=== PATIENT | male | born 1990 | race Two or more races ===

== ENCOUNTER 2021-05-08 19:34 | Emergency (ER) | payer SELFPAY ==
[~2021-05-08] VITALS: Ht 157.5 cm; Wt 72.0 kg
--- NOTE | 2021-05-08 20:22 | PHYS DOC ---
Past Medical History Past Surgical History: No Surgical History General Adult EDM: Chief Complaint: HEADACHE HPI: HPI: Patient is a 31-year-old male who presents to the emergency department for bilateral tinnitus and a generalized headache x1 week. Patient reports that over the last week he is intermittently had numbness or tingling in his left arm and midsternal chest pain. Patient states that he was seen for the same complaint at [facility] 2 months ago they told him that while in the ER, his blood pressure was elevated. He states that he did not get discharged home with any hypertension medications and he does not have a primary care provider. He denies any current chest pain, nausea, vomiting, coughing, fevers, shortness of breath. He states that he does not take any medications at home including [id number] medications. Review of Systems: Review of Systems: Constitutional: See HPI HENT: See HPI Respiratory: See HPI Cardiovascular: See HPI GI: See HPI Neurologic: See HPI Heart Score: C/O Chest Pain: No HEART Score for Chest Pain: HEART Score for Chest Pain Response (Comments) Value History Slighlty/Non-Suspicious 0 ECG Normal 0 Age < 45 0 Risk Factors No Risk Factors 0 Troponin < Normal Limit 0 Total 0 Risk Factors: Risk Factors: DM, Current or recent (<one month) smoker, HTN, HLP, family history of CAD, obesity. Risk Scores: Score 0 - 3: 2.5% MACE over next 6 weeks - Discharge Home Score 4 - 6: 20.3% MACE over next 6 weeks - Admit for Clinical Observation Score 7 - 10: 72.7% MACE over next 6 weeks - Early Invasive Strategies Allergies: Allergies: Allergies Coded Allergies Type Severity Reaction Last Updated Verified No Known Drug Allergies 05/08/21 No Physical Exam: PE: Constitutional: Well developed, well nourished, no acute distress, non-toxic appearance. [] HENT: Normocephalic, atraumatic, bilateral external ears normal, fluid noted behind bilateral TMs without erythema, oropharynx moist, no oral exudates, nose normal. [] Eyes: PERRL, EOMI, conjunctiva normal, no discharge. [] Neck: Normal range of motion, no tenderness, supple, no stridor. [] Cardiovascular:Heart rate regular rhythm, no murmur [] Lungs & Thorax: Bilateral breath sounds clear to auscultation [] Abdomen: Bowel sounds normal, soft, no tenderness, no masses, no pulsatile masses. [] Skin: Warm, dry, no erythema, no rash. [] Back: Normal range of motion Extremities: No tenderness, no cyanosis, no clubbing, ROM intact, no edema. [] Neurologic: Alert and oriented X 3, normal motor function, normal sensory function, no focal deficits noted. [] Psychologic: Affect normal, judgement normal, mood normal. [] Current Patient Data: Labs: Laboratory Tests Test 05/08/21 20:25 White Blood Count 7.3 x10^3/uL Red Blood Count 5.36 x10^6/uL Hemoglobin 16.0 g/dL Hematocrit 47.1 % Mean Corpuscular Volume 88 fL Mean Corpuscular Hemoglobin 30 pg Mean Corpuscular Hemoglobin Concent 34 g/dL Red Cell Distribution Width 13.5 % Platelet Count 262 x10^3/uL Neutrophils (%) (Auto) 53 % Lymphocytes (%) (Auto) 32 % Monocytes (%) (Auto) 9 % Eosinophils (%) (Auto) 5 % Basophils (%) (Auto) 1 % Neutrophils # (Auto) 3.9 x10^3/uL Lymphocytes # (Auto) 2.3 x10^3/uL Monocytes # (Auto) 0.6 x10^3/uL Eosinophils # (Auto) 0.4 x10^3/uL Basophils # (Auto) 0.1 x10^3/uL Sodium Level 140 mmol/L Potassium Level 3.7 mmol/L Chloride Level 101 mmol/L Carbon Dioxide Level 30 mmol/L Anion Gap 9 Blood Urea Nitrogen 11 mg/dL Creatinine 0.9 mg/dL Estimated GFR (Cockcroft-Gault) 97.8 BUN/Creatinine Ratio 12 Glucose Level 100 mg/dL Calcium Level 8.6 mg/dL Total Bilirubin 0.2 mg/dL Aspartate Amino Transf (AST/SGOT) 16 U/L Alanine Aminotransferase (ALT/SGPT) 34 U/L Alkaline Phosphatase 75 U/L Troponin I High Sensitivity 16 ng/L Total Protein 7.2 g/dL Albumin 3.9 g/dL Albumin/Globulin Ratio 1.2 Current Medications Medications (Trade) Dose Ordered Sig/Juan Route PRN Reason Start Time Stop Time Status Last Admin Dose Admin Ketorolac Tromethamine (Toradol 30mg Vial) 30 mg 1X ONCE IVP 05/08/21 20:30 05/08/21 20:31 DC 05/08/21 20:48 Diphenhydramine HCl (Benadryl) 25 mg 1X ONCE IVP 05/08/21 20:30 05/08/21 20:31 DC 05/08/21 20:48 Prochlorperazine Edisylate (Compazine) 10 mg 1X ONCE IV 05/08/21 20:30 05/08/21 20:31 DC 05/08/21 20:47 Vital Signs: Vital Signs Date Time Temp Pulse Resp B/P (MAP) Pulse Ox O2 Delivery O2 Flow Rate FiO2 05/08/21 19:45 98.6 70 18 162/103 (122) 100 98.6 EKG: EKG: [] EKG performed by ER staff at 2006 shows sinus rhythm with a heart rate of 63, QTC of 363, no STEMI read by Dr. Gunderson at 2009. Radiology/Procedures: Radiology/Procedures: []PROCEDURE: CT HEAD WO CONTRAST EXAMINATION: CT HEAD/BRAIN WO CLINICAL HISTORY: Headache, numbness TECHNIQUE: Serial axial images without IV contrast were obtained from the vertex to the foramen magnum. CT Dose Reduction Employed: One or more of the following individualized dose reduction techniques were utilized for this examination: 1. Automated exposure control 2. Adjustment of the mA and/or kV according to patient size 3. Use of iterative reconstruction technique. COMPARISON: None FINDINGS: Acute Change: No evidence of acute intracranial abnormality. Hemorrhage: No evidence of acute intracranial hemorrhage. Mass Lesion/Mass Effect: No evidence of intracranial mass or extraaxial fluid collection. No significant mass effect. Parenchyma: Parenchyma within normal limits for age. Ventricles: Ventricles within normal limits for age. Paranasal Sinuses and Skull Base: No significant paranasal sinus disease. Visualized skull base and soft tissues unremarkable. IMPRESSION: No evidence of acute intracranial abnormality. Electronically signed by: Alvarado Chan DO (05/08/2021 9:22 PM) [facility] DICTATED and SIGNED BY: ALVARADO CHAN DO DATE: 05/08/[id number] 0 PROCEDURE: PORTABLE CHEST 1V EXAMINATION: XR CHEST 1V CLINICAL HISTORY: Intermittent chest pain EXAM DATE/TIME: 05/08/2021 8:23 PM COMPARISON: None FINDINGS: Lines, Tubes, and Devices: None. Cardiomediastinal Silhouette: Within normal limits. Lungs and Pleura: Mild patchy opacities in the right greater than left mid to lower lung zones. No evidence of pleural effusion or pneumothorax. Bones and Soft Tissues: No acute osseous abnormality. IMPRESSION: Bilateral mild patchy airspace disease as described, nonspecific but can be seen with viral/atypical pneumonia. Correlate clinically. Electronically signed by: Alvarado Chan DO (05/08/2021 8:28 PM) [facility] DICTATED and SIGNED BY: ALVARADO CHAN DO DATE: 05/08/[id number] 0 Course & Med Decision Making: Course & Med Decision Making Pertinent Labs and Imaging studies reviewed. (See chart for details) Patient presents to the emergency department for bilateral ear tinnitus and a generalized headache x1 week. He reports that he has had intermittent left arm tingling and chest pain x1 week. He reports that he was seen 2 months ago at for the same symptoms. Patients headache treated in ER. Patient does not currently have any chest pain. His heart score is 0. Upon physical exam, he was noted to have fluid behind his tympanic membranes and he was advised to take Zyrtec. His blood work was unremarkable. His chest x-ray showed bilateral mild patchy opacities consistent with an atypical pneumonia and he will be treated with an antibiotic. Due to these findings, patient will be tested for COVID-19. Patient will be notified of these results when they become available in approximately 2 days and he was advised to self isolate pending these results. Patient CT head was negative. Patient's vital signs are stable and he is in no acute distress. Blood pressure was 150/89. Patient advised to follow-up with his primary care provider, he was given a list of clinics and primary care providers to follow-up with. I discussed with patient all findings and diagnostic testing as well as the need to follow-up with PCP for further evaluation and treatment or return to the ER if any new or worsening symptoms. Strict return precautions were also discussed at length. Patient voiced understanding and agreement with the plan. Patient is hemodynamically stable at the time of disposition. Dragon Disclaimer: Dragon Disclaimer: This electronic medical record was generated, in whole or in part, using a voice recognition dictation system. Departure Departure Impression: Primary Impression: Pneumonia Qualified Codes: J18.9 - Pneumonia, unspecified organism Additional Impression: Tinnitus Qualified Codes: H93.13 - Tinnitus, bilateral Disposition: HOME / SELF CARE / HOMELESS Condition: GOOD Patient Instructions: Pneumonia, Adult, Tinnitus Additional Instructions: You were seen in the emergency department today for tendinitis, headache and intermittent chest pain and tingling in your left arm. At this time, does not appear that you are experiencing acute coronary syndrome, however if your symptoms persist you need to return to the emergency department for additional evaluation. Your blood work was unremarkable. The CT scan of your head showed no acute findings. Your chest x-ray showed a possible pneumonia which will be treated with an antibiotic. You are also Covid tested and you will be notified of these results when they become available in approximately 2 days. Please self isolate until you receive these results. Your ears appeared to have fluid behind your tympanic membranes. You can help with this by taking daily antihistamine like Zyrtec. Please follow-up with your primary care provider tomorrow regarding your ER visit. If you do not have a primary care provider you can follow-up with one of the primary care providers attached or a clinic. Please return to the emergency department if you develop shortness of breath, worsening of your chest pain, worsening of your headache, unilateral weakness, speech problems or difficulty ambulating, intractable nausea or vomiting or high fevers refractory to treatment. Scripts Azithromycin (AZITHROMYCIN TABLET) 250 Mg Tablet 1 PKG PO UD for 5 Days, #6 TAB 0 Refills 2 the first day followed by 1 for days 2-5 Prov: MANNIE SHERIFF APRN 05/08/21 MANNIE SHERIFF APRN May 08, 2021 20:22
[2021-05-08] MEDS ORDERED: PROCHLORPERAZINE 10 MG/2 ML VIAL. IV ONE (20:30)
[2021-05-08] MEDS ORDERED: KETOROLAC 30 MG/ML VIAL. IVP ONE (20:30)
[2021-05-08] MEDS ORDERED: diphenhydrAMINE 50 MG/ML VIAL IVP ONE (20:30)
--- NOTE | 2021-05-08 20:30 | RAD ---
EXAMINATION: XR CHEST 1V CLINICAL HISTORY: Intermittent chest pain EXAM DATE/TIME: 05/08/2021 8:23 PM COMPARISON: None FINDINGS: Lines, Tubes, and Devices: None. Cardiomediastinal Silhouette: Within normal limits. Lungs and Pleura: Mild patchy opacities in the right greater than left mid to lower lung zones. No ev idence of pleural effusion or pneumothorax. Bones and Soft Tissues: No acute osseous abnormality. IMPRESSION: Bilateral mild patchy airspace disease as described, nonspecific but can be seen with viral/atypical pneumonia. Correlate clinically. Electronically signed by: Alvarado Siddiqui DO (05/08/2021 8:28 PM) [facility]
[2021-05-08 20:44] LABS: BASO # 0.1 x10^3/uL (0.0-0.2); BASO % 1 % (0-3); EOS # 0.4 x10^3/uL (0.0-0.7); EOS % 5 % (0-3); HEMATOCRIT 47.1 % (39.0-53.0); LYMPH # 2.3 x10^3/uL (1.0-4.8); LYMPH % 32 % (24-48); MEAN CORPUSCULAR HEMOGLOBIN 30 pg (25-35); MEAN CORPUSCULAR HGB CONC 34 g/dL (31-37); MEAN CORPUSCULAR VOLUME 88 fL (79-100); MONO # 0.6 x10^3/uL (0.0-1.1); MONO % 9 % (0-9); NEUT # 3.9 x10^3/uL (1.8-7.7); NEUT % 53 % (31-73); PLATELET COUNT 262 x10^3/uL (140-400); RED BLOOD COUNT 5.36 x10^6/uL (4.30-5.70); RED CELL DISTRIBUTION WIDTH 13.5 % (11.5-14.5); WHITE BLOOD COUNT 7.3 x10^3/uL (4.0-11.0)
[2021-05-08 20:56] LABS: CALCIUM 8.6 mg/dL (8.5-10.1); CREATININE 0.9 mg/dL (0.7-1.3); GFR 97.8; POTASSIUM 3.7 mmol/L (3.5-5.1)
[2021-05-08 21:02] LABS: ALBUMIN 3.9 g/dL (3.4-5.0); ALBUMIN/GLOBULIN RATIO 1.2 (1.0-1.7); TOTAL BILIRUBIN 0.2 mg/dL (0.2-1.0); TOTAL PROTEIN 7.2 g/dL (6.4-8.2)
--- NOTE | 2021-05-08 21:24 | RAD ---
EXAMINATION: CT HEAD/BRAIN WO CLINICAL HISTORY: Headache, numbness TECHNIQUE: Serial axial images without IV contrast were obtained from the vertex to the foramen magnu m. CT Dose Reduction Employed: One or more of the following individualized dose reduction techniques wer e utilized for this examination: 1. Automated exposure control 2. Adjustment of the mA and/or kV ac cording to patient size 3. Use of iterative reconstruction technique. COMPARISON: None FINDINGS: Acute Change: No evidence of acute intracranial abnormality. Hemorrhage: No evidence of acute intracranial hemorrhage. Mass Lesion/Mass Effect: No evidence of intracranial mass or extraaxial fluid collection. No signific ant mass effect. Parenchyma: Parenchyma within normal limits for age. Ventricles: Ventricles within normal limits for age. Paranasal Sinuses and Skull Base: No significant paranasal sinus disease. Visualized skull base and s oft tissues unremarkable. IMPRESSION: No evidence of acute intracranial abnormality. Electronically signed by: Alvarado Siddiqui DO (05/08/2021 9:22 PM) [facility]
[2021-05-08] MEDS ORDERED: AZIT250T6 PO (21:36)
[2021-05-08 22:00] VITALS: BP 112/83
--- NOTE | 2021-05-08 22:27 | EKG ---
[facility] [address] [place] [id number] Test Date: 2021-05-08 Test Time: 20:07:40 Pat Name: JACK HOLT Department: Room: Gender: Hand Sander: : 1990 Requested By: MANNIE SHERIFF Order Number: [id number] Reading MD: Scar Mercado Measurements Intervals [place] Rate: 63 P: 19 PA: 184 QRS: 64 QRSD: 84 T: 16 QT: 352 QTc: 363 Interpretive Statements SINUS RHYTHM Electronically Signed On 05-10-2021 12:43:17 TILTING SAW OPERATOR by Scar Mercado
--- NOTE | 2021-05-10 15:28 | NUR ---
IP: Informed pt of negative covid test. Pt verbalized understanding.
== END 2021-05-08 22:01 | disposition home or self-care (01) ==
LOC: ER 19:34
DX: J18.9 Pneumonia, unspecified organism (principal); H93.13 Tinnitus, bilateral; Z20.822 Contact with and (suspected) exposure to COVID-19
CPT/HCPCS: 36415; 70450; 71045; 80053; 84484; 85025; 93005; 96374; 96375; 99285; J0780; J1200; J1885; U0003; U0005